=== PATIENT | male | born 1965 ===

== ENCOUNTER 2021-05-30 12:09 | Emergency (ER) | payer SELFPAY ==
[2021-05-30] MEDS ORDERED: KETOROLAC 30 MG/1 ML INJ IM ONE (12:32)
--- NOTE | 2021-05-30 12:32 | Emergency Department Report ---
ED Extremity Problem HPI - General Chief complaint: Extremity Problem,Nontraumatic Stated complaint: KNEE INJURY RT Time Seen by Provider: 05/30/21 12:18 Source: patient Mode of arrival: Ambulatory Limitations: No Limitations - History of Present Illness Initial comments: 56-year-old male presents to the ER today with complaints of anterior right knee pain swelling and redness. 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 He states that he was doing a routine job yesterday when he got his knees and then 2 hours later started having increased pain and swelling to the anterior aspect of the right knee and has since developed redness to the anterior aspect of the right knee. He also states that is also hot to touch. He reports increased pain with flexion and extension of the knee, weightbearing and ambulation. He denies any apparent injury, puncture wound or insect bites to his knee. He denies any associated fever or chills. He has not taken anything for the pain. He denies similar symptoms in the past. MD Complaint: joint swelling, joint paint -: Gradual, days(s) (1) - Related Data Previous Rx's Medication Instructions Recorded Last Taken Type Acetaminophen/Codeine [Tylenol 1 tab PO Q6H PRN #12 tab 05/30/21 Unknown Rx /Codeine # 3 tab] Ketorolac [Toradol] 10 mg PO Q6H PRN #20 tablet 05/30/21 Unknown Rx cephALEXin [Keflex] 500 mg PO Q6HR #40 capsule 05/30/21 Unknown Rx Allergies Allergy/AdvReac Type Severity Reaction Status Date / Time No Known Allergies Allergy Verified 05/30/21 12:13 ED Review of Systems ROS: Stated complaint: KNEE INJURY RT Other details as noted in HPI ED Past Medical Hx - Past Medical History Previous Medical History?: No - Surgical History Past Surgical History?: No - Medications Home Medications: Home Medications Medication Instructions Recorded Confirmed Last Taken Type Acetaminophen/Codeine [Tylenol 1 tab PO Q6H PRN #12 tab 05/30/21 Unknown Rx /Codeine # 3 tab] Ketorolac [Toradol] 10 mg PO Q6H PRN #20 tablet 05/30/21 Unknown Rx cephALEXin [Keflex] 500 mg PO Q6HR #40 capsule 05/30/21 Unknown Rx ED Physical Exam - General Limitations: No Limitations ED Course Vital Signs 05/30/21 12:15 Temperature 98.9 F Pulse Rate 70 Respiratory 18 Rate Blood Pressure 144/83 O2 Sat by Pulse 97 Oximetry ED Medical Decision Making - Radiology Data Patient: BE REAL MR#: [id number] : 1965 Acct:[id number] Age/Sex: 56 / M ADM Date: 05/30/21 Loc: ED Attending Dr: Ordering Physician: THI HALEY Date of Service: 05/30/21 Procedure(s): XR knee 3V RT Accession Number(s): [id number] cc: THI HALEY Fluoro Time In Minutes: XR knee 3V RT INDICATION / CLINICAL INFORMATION: knee swelling/pain and redness. COMPARISON: None available. FINDINGS: BONES/JOINT(S): No acute fracture or subluxation. No significant degenerative changes. SOFT TISSUES: No significant abnormality. ADDITIONAL FINDINGS: None. Signer Name: James Rodriguez MD Signed: 05/30/2021 1:11 PM Workstation Name: [email or web address] Transcribed By: REED Dictated By: James Rodriguez MD Electronically Authenticated By: James Rodriguez MD Signed Date/Time: 05/30/21 131 DD/ 09 TD/TT: - Medical Decision Making 56-year-old male presents to the ER today with complaints of anterior right knee pain swelling and redness. 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 He states that he was doing a routine job yesterday when he got his knees and then 2 hours later started having increased pain and swelling to the anterior aspect of the right knee and has since developed redness to the anterior aspect of the right knee. He also states that is also hot to touch. He reports increased pain with flexion and extension of the knee, weightbearing and ambulation. He denies any apparent injury, puncture wound or insect bites to his knee. He denies any associated fever or chills. He has not taken anything for the pain. He denies similar symptoms in the past. Knee xray shows nothing acute. PE concerning for prepatellar bursitis. He will be discharged home on anti-inflammatories, but will also give antibiotics to cover for possible associated cellulitis. Patient is afebrile, is not toxic or ill-appearing, and neurologically intact. I do not suspect septic joint at this time. Discussed imaging results, suspected diagnosis and treatment plan with patient. Also discussed worsening signs and symptoms with patient in if those signs and symptoms develop any to return to the ER immediately. Patient expressed understanding of all instructions and agree with plan. Patient stable at time of discharge. Critical care attestation.: If time is entered above; I have spent that time in minutes in the direct care of this critically ill patient, excluding procedure time. ED Disposition Clinical Impression: Patellar bursitis of right knee Disposition: 01 HOME / SELF CARE / HOMELESS Is pt being admited?: No Does the pt Need Aspirin: No Condition: Stable Instructions: Bursitis, [id number] Additional Instructions: I recommend that you take the Toradol as prescribed to help with pain and inflammation and swelling, and also recommend that you take the keflex as prescribed and use the melba wrap as discussed and I recommend no kneeling for next few days. follow up with sustainable agriculture specialist listed on your discharge instructions in 1-2 weeks. Return to ED if symptom worsening with spreading redness, increasing pain and fever and chills. Prescriptions: cephALEXin [Keflex] 500 mg PO Q6HR #40 capsule Ketorolac [Toradol] 10 mg PO Q6H PRN #20 tablet PRN Reason: Pain Acetaminophen/Codeine [Tylenol /Codeine # 3 tab] 1 tab PO Q6H PRN #12 tab PRN Reason: Pain Referrals: JEREMIAS NATION MD [Staff Physician] - 3-5 Days Forms: Work/School Release Form(ED) Time of Disposition: 13:58
--- NOTE | 2021-05-30 13:15 | XRay Report ---
XR knee 3V RT INDICATION / CLINICAL INFORMATION: knee swelling/pain and redness. COMPARISON: None available. FINDINGS: BONES/JOINT(S): No acute fracture or subluxation. No significant degenerative changes. SOFT TISSUES: No significant abnormality. ADDITIONAL FINDINGS: None. Signer Name: James Rodriguez MD Signed: 05/30/2021 1:11 PM Workstation Name: [email or web address]
[2021-05-30 15:27] VITALS: BP 148/69
== END 2021-05-30 15:27 | disposition home or self-care (01) ==
LOC: ED 12:09
DX: M70.41 Prepatellar bursitis, right knee (principal); Z79.899 Other long term (current) drug therapy; Y93.89 Activity, other specified
CPT/HCPCS: 73562; 96372; 99283; J1885